=== PATIENT | male | born 1965 | race Caucasian/White ===

== ENCOUNTER → 2016-11-24 | Outpatient (CLI) | payer OTHER ==
--- NOTE | 2016-11-24 13:21 | XR ---
EXAMINATION TYPE: XR chest 2V DATE OF EXAM: 11/24/2016 1:15 PM COMPARISON: Prior chest x-ray March HISTORY: Pneumonia and cough TECHNIQUE: Frontal and lateral views of the chest are obtained. FINDINGS: There is no focal air space opacity, pleural effusion, or pneumothorax seen. The cardiac silhouette size is within normal limits. Patient is rotated. The osseous structures are remarkable for some irregularity of the 4th rib laterally on the right, possible old fracture, similar appearanc e to the left fifth rib. IMPRESSION: No acute cardiopulmonary process. Correlate for possible old rib fractures.
== END | disposition home or self-care (01) ==
LOC: RADXRMAIN 12:53
PROVIDERS: ATTEND Family Medicine
DX: J18.9 Pneumonia, unspecified organism (principal)
CPT/HCPCS: 71020

== ENCOUNTER → 2017-06-07 | Outpatient (CLI) | payer OTHER ==
--- NOTE | 2017-06-07 08:47 | XR ---
EXAMINATION TYPE: XR Hip Complete RT DATE OF EXAM: 06/07/2017 COMPARISON: NONE HISTORY: Pain TECHNIQUE: 2 views submitted FINDINGS: There is no evidence of erosive change or acute fracture. There is postsurgical change with heterotopic ossification in the soft tissues. Tiny bony circular cece cencies in the mid diaphysis are nonspecific. IMPRESSION: 1. No evidence of acute fracture or dislocation. 2. Postsurgical change.
--- NOTE | 2017-06-07 08:48 | XR ---
EXAM TYPE: LUMBAR SPINE X RAY SERIES COMPARISON: NONE HISTORY: Pain TECHNIQUE: 3 views are submitted. FINDINGS: Alignment is anatomic. The pedicles are intact. The transverse processes are intact. There is no s pondylolysis or spondylolisthesis. IVC filter noted. Hypertrophic degenerative change at all levels with compression deformity of L3 inferior endplate and superior endplate T12. Multilevel facet arthro cece noted. IMPRESSION: 1. Compression deformity T12 and L3 has been noted by previous MRI. Deformity of the S1 level also is seen by previous MRI and suggestive of multiple myeloma. 2. Multilevel degenerative disc disease.
== END | disposition home or self-care (01) ==
LOC: RADXRMAIN 08:11
PROVIDERS: ATTEND Family Medicine
DX: M25.551 Pain in right hip (principal); M51.36 Other intervertebral disc degeneration, lumbar region; Z98.890 Other specified postprocedural states
CPT/HCPCS: 72100; 73502

== ENCOUNTER → 2017-07-21 | Outpatient (CLI) | payer BC ==
--- NOTE | 2017-07-21 15:42 | XR ---
EXAMINATION TYPE: XR chest 2V DATE OF EXAM: 07/21/2017 COMPARISON: Prior chest x-ray 11/24/2016 HISTORY: Cough TECHNIQUE: Frontal and lateral views of the chest are obtained. FINDINGS: There is no focal air space opacity, pleural effusion, or pneumothorax seen. The cardiac silhouette size is within normal limits. Bronchial wall thickening noted. The osseous structures are stable. IMPRESSION: Correlate for reactive airways disease, bronchitis
== END | disposition home or self-care (01) ==
LOC: RADXRMAIN 12:01
PROVIDERS: ATTEND Family Medicine
DX: R05 Cough (principal)
CPT/HCPCS: 71020

== ENCOUNTER → 2017-07-22 | Outpatient (CLI) | payer BC ==
--- NOTE | 2017-07-22 13:03 | US ---
EXAMINATION TYPE: US venous doppler duplex LE DATE OF EXAM: 07/22/2017 12:46 PM COMPARISON: NONE CLINICAL HISTORY: M79.662 left leg pain,M79.661 pain in right leg. Patient has h/o DVT in right leg a nd has Honey filter, pain in right leg today, hip fracture 2 years ago on the right and leg have never been the same SIDE PERFORMED: Right TECHNIQUE: The lower extremity deep venous system is examined utilizing real time linear array sonog bianca with graded compression, doppler sonography and color-flow sonography. VESSELS IMAGED: External Iliac Vein (EIV) Common Femoral Vein Deep Femoral Vein Greater Saphenous Vein * Femoral Vein Popliteal Vein Small Saphenous Vein * Proximal Calf Veins (* superficial vessels) order stated bilateral, patient stated he is only here for right leg and knew there would be additi onal charge for the left leg. Declined left leg ultrasound today since no symptoms, tried to contact office so they are aware and they were closed for lunch till 1:15. Grayscale, color doppler, spectral doppler imaging performed of the deep veins of the right lower ext remity. There is normal flow, compressibility, vascular waveforms. Right Leg: Appears negative for DVT IMPRESSION: No evidence for DVT right lower extremity.
== END | disposition home or self-care (01) ==
LOC: RADUSWWP 12:05
PROVIDERS: ATTEND Internal Medicine Hematology & Oncology
DX: I82.411 Acute embolism and thrombosis of right femoral vein (principal); C90.00 Multiple myeloma not having achieved remission

== ENCOUNTER → 2018-11-14 | Outpatient (CLI) | payer BC, MEDICARE ==
--- NOTE | 2018-11-14 12:27 | ECHOF ---
Referral Reason:R06.02 shortness of breath MEASUREMENTS -------- HEIGHT: 175.3 cm WEIGHT: 102.5 kg BP: 134/83 RVIDd: 3.5 cm (< 3.3) IVSd: 1.4 cm (0.6 - 1.1) LVIDd: 4.7 cm (3.9 - 5.3) LVPWd: 1.3 cm (0.6 - 1.1) IVSs: 1.9 cm LVIDs: 3.0 cm LVPWs: 1.7 cm LA Diam: 3.6 cm (2.7 - 3.8) LAESV Index (A-L): 19.27 ml/m Ao Diam: 3.6 cm (2.0 - 3.7) AV Cusp: 2.6 cm (1.5 - 2.6) MV EXCURSION: 16.659 mm (> 18.000) MV EF SLOPE: 71 mm/s (70 - 150) EPSS: 1.1 cm MV E Tien: 0.76 m/s MV DecT: 254 ms MV A Tien: 0.84 m/s MV E/A Ratio: 0.91 RAP: 5.00 mmHg RVSP: 31.94 mmHg FINDINGS -------- Sinus rhythm. This was a technically good study. The left ventricular size is normal. There is moderate concentric left ventricular hypertrophy. O verall left ventricular systolic function is normal with, an EF between 60 - 65 %. The right ventricle is mildly enlarged. Normal LA size by volume 22+/-6 ml/m2. The right atrium is normal in size. The aortic valve is trileaflet and appears structurally normal. The mitral valve is normal. Mild tricuspid regurgitation present. Right ventricular systolic pressure is normal at < 35 mmHg. The right ventricular systolic pressure, as measured by Doppler, is 31.94mmHg. Trace/mild (physiologic) pulmonic regurgitation. The aortic root size is normal. Normal inferior vena cava with normal inspiratory collapse consistent with estimated right atrial pre ssure of 5 mmHg. There is no pericardial effusion. CONCLUSIONS -------- 1. Sinus rhythm. 2. This was a technically good study. 3. The left ventricular size is normal. 4. There is moderate concentric left ventricular hypertrophy. 5. Overall left ventricular systolic function is normal with, an EF between 60 - 65 %. 6. The right ventricle is mildly enlarged. 7. Normal LA size by volume 22+/-6 ml/m2. 8. The right atrium is normal in size. 9. The aortic valve is trileaflet and appears structurally normal. 10. The mitral valve is normal. 11. Mild tricuspid regurgitation present. 12. Right ventricular systolic pressure is normal at < 35 mmHg. 13. The right ventricular systolic pressure, as measured by Doppler, is 31.94mmHg. 14. Trace/mild (physiologic) pulmonic regurgitation. 15. The aortic root size is normal. 16. Normal inferior vena cava with normal inspiratory collapse consistent with estimated right atrial pressure of 5 mmHg. 17. There is no pericardial effusion. REFRACTORY FURNACE DESIGNER: Roseanne Styles RDCS
== END ==
LOC: RADECHMAIN 08:14
PROVIDERS: ATTEND Family Medicine
DX: I07.1 Rheumatic tricuspid insufficiency (principal)
CPT/HCPCS: 93306

== ENCOUNTER → 2021-07-29 | Outpatient (CLI) | payer BC, MEDICARE ==
--- NOTE | 2021-07-29 15:42 | XR ---
EXAMINATION TYPE: XR foot complete RT DATE OF EXAM: 07/29/2021 COMPARISON: NONE HISTORY: Pain TECHNIQUE: Three views are submitted. FINDINGS: The osseous structures are intact. There is no acute fracture or dislocation. Hammertoe deformitie s. Mild arthropathy of the first MTP. calcaneal spurs noted. IMPRESSION: 1. No acute fracture or dislocation. If symptoms persist, follow-up exam in 7 to 10 days could be ob tained. 2. Arthropathy.
--- NOTE | 2021-07-29 15:48 | XR ---
EXAMINATION TYPE: XR ankle complete RT DATE OF EXAM: 07/29/2021 COMPARISON: NONE HISTORY: Pain FINDINGS: Three views of the ankle demonstrate the ankle mortise to be intact and symmetric. The joint spaces are preserved. The osseous structures are intact. Small plantar calcaneal spur. Soft tissue edema. IMPRESSION: 1. No definite acute fracture or dislocation, if symptoms persist follow-up study in 7 to 10 days wou ld be suggested.
== END | disposition home or self-care (01) ==
LOC: RADXRMAIN 14:53
PROVIDERS: ATTEND Family Medicine
DX: M19.071 Primary osteoarthritis, right ankle and foot (principal)

== ENCOUNTER → 2021-11-07 | Outpatient (CLI) | payer BC, MEDICARE ==
--- NOTE | 2021-11-07 09:56 | US ---
EXAMINATION TYPE: US abdomen complete DATE OF EXAM: 11/07/2021 COMPARISON: NONE CLINICAL HISTORY: R10.9. right flank pain. nausea EXAM MEASUREMENTS: Liver Length: 17.8 cm Gallbladder Wall: 0.2 cm CBD: 0.4 cm Spleen: 12.4 cm Right Kidney: 10.9 x 5.5 x 4.8 cm Left Kidney: 12.1 x 4.7 x 4.7 cm Pancreas: Obscured by bowel gas Liver: Mildly enlarged, slightly heterogeneous Gallbladder: no evidence of stones Evidence for sonographic Burns's sign: no CBD: wnl Spleen: wnl Right Kidney: no evidence of hydronephrosis Left Kidney: no evidence of hydronephrosis Upper IVC: wnl Abd Aorta: wnl IMPRESSION: 1. Mild hepatomegaly.
== END | disposition home or self-care (01) ==
LOC: RADUSWWP 07:25
PROVIDERS: ATTEND Family Medicine
DX: R16.0 Hepatomegaly, not elsewhere classified (principal)
CPT/HCPCS: 76700

== ENCOUNTER → 2021-12-12 | Outpatient (CLI) | payer BC, MEDICARE ==
--- NOTE | 2021-12-12 15:04 | NM ---
EXAMINATION TYPE: NM hepatobiliary w CCK DATE OF EXAM: 12/12/2021 COMPARISON: NONE HISTORY: K 80.10 TECHNIQUE: After the intravenous administration of 4 mCi Tc 99m Mebrofenin hepatobiliary scintigraphy is performed. Immediate images post injection. FINDINGS: There is satisfactory initial accumulation of tracer by the liver. The gallbladder is visualized wit hin 10 minutes. The small bowel activity is noted on acquired ejection fraction images. At one hour CCK was administered, patient was injected with 1.9 mcg of Kinevac, and gallbladder ejection fractio n is calculated at 88 %, above the upper limit of the normal range. Therefore there is no scintigra phic evidence of cystic or common bile duct obstruction to suggest acute cholecystitis or gallbladder dyskinesia. IMPRESSION: Elevated ejection fraction can be seen with hyperdynamic gallbladder, delayed visualizati on of the small bowel
== END | disposition home or self-care (01) ==
LOC: RADNMMAIN 12:29
PROVIDERS: ATTEND Surgery Plastic and Reconstructive Surgery
DX: K82.8 Other specified diseases of gallbladder (principal)
CPT/HCPCS: 78227; A9537; J2805

== ENCOUNTER 2022-01-08 07:02 | Day surgery (SDC) | payer BC, MEDICARE ==
[2021-12-16 12:22] VITALS: BMI 31.6
[~2022-01-08 07:02] MED LIST: LACTATED RINGERS 1,000 ML IV SCH
[2022-01-08 07:30] VITALS: TEMP 97
--- NOTE | 2022-01-08 07:37 | P.GSHP ---
History of Present Illness H&P Date: 01/08/22 CHIEF COMPLAINT: Colon screen HISTORY OF PRESENT ILLNESS: The patient is a 56-year-old male who presents for colon screen. Lower endoscopy was offered for further evaluation and management. PAST MEDICAL HISTORY: Please see list. PAST SURGICAL HISTORY: Please see list. MEDICATIONS: Please see list. ALLERGIES: Please see list. SOCIAL HISTORY: No illicit drug use FAMILY HISTORY: No reports of Crohn disease or ulcerative colitis. REVIEW OF ORGAN SYSTEMS: CONSTITUTIONAL: No reports of fevers or chills. PHYSICAL EXAM: VITAL SIGNS: Stable GENERAL: Well-developed pleasant in no acute distress. HEENT: No scleral icterus. Extraocular movements grossly intact. Moist buccal mucosa. NECK: Supple without lymphadenopathy. CHEST: Unlabored respirations. Equal bilateral excursions. CARDIOVASCULAR: Regular rate and rhythm. Distal 2+ pulses. ABDOMEN: Soft, nontender, nondistended. MUSCULOSKELETAL: No clubbing, cyanosis, or edema. ASSESSMENT: 1. Colon screen. PLAN: 1. Recommend proceeding with a lower endoscopy Past Medical History Past Medical History: Asthma, Cancer, COPD, CVA/TIA, Deep Vein Thrombosis (DVT), GERD/Reflux, Hypertension, Myocardial Infarction ([place]), Osteoarthritis (OA), Pneumonia, Thyroid Disorder Additional Past Medical History / Comment(s): back pain, restless leg syndrome, vertigo, multiple myeloma- completed radiation tx march 2015 and did 8 cycleS of chemo, factory related COPD, migraines Last Myocardial Infarction Date:: History of Any Multi-Drug Resistant Organisms: C-DIFF Date of last positivie culture/infection: 12-17-15 MDRO Source:: stool Past Surgical History: Hernia Repair Additional Past Surgical History / Comment(s): jaw repair x2, madi filter Past Anesthesia/Blood Transfusion Reactions: No Reported Reaction Smoking Status: Never smoker - Past Family History Father Family Medical History: Coronary Artery Disease (CAD) Additional Family Medical History / Comment(s): triple cabg Mother Family Medical History: Cancer, CVA/TIA Medications and Allergies Home Medications Medication Instructions Recorded Confirmed Type Omeprazole [PriLOSEC] 20 mg PO AC-BRKFST capsule. 04/06/15 01/06/22 Rx Acyclovir [Zovirax] 200 mg PO BID 12/17/15 01/06/22 History Albuterol Sulfate [Proair Hfa] 2 puff INHALATION RT-Q6H PRN 12/17/15 01/06/22 History Budesonide/Formoterol Fumarate 2 puff INHALATION RT-BID 12/17/15 01/06/22 History [Symbicort 160-4.5 Mcg Inhaler] Levothyroxine Sodium [Synthroid] 200 mcg PO DAILY 12/17/15 01/06/22 History Sertraline [Zoloft] 100 mg PO DAILY 12/17/15 01/06/22 History Aspirin 325 mg PO DAILY 12/16/21 01/06/22 History Candesartan [Atacand] 32 mg PO DAILY 12/16/21 01/06/22 History Imatinib Mesylate 400 mg PO W/SUPPER 12/16/21 01/06/22 History Montelukast [Singulair] 10 mg PO DAILY 12/16/21 01/06/22 History dilTIAZem HCL [dilTIAZem HCL 24Hr 180 mg PO DAILY 12/16/21 01/06/22 History ER (Xr)] traZODone HCL 50 mg PO HS PRN 12/16/21 01/06/22 History Bortezomib 0 mg IV Q21D 01/06/22 01/06/22 History Allergies Allergy/AdvReac Type Severity Reaction Status Date / Time No Known Allergies Allergy Verified 01/08/22 07:27 Surgical - Exam Vital Signs Temp Pulse Resp BP Pulse Ox 97.0 F L 76 18 151/100 99 01/08/22 07:29 01/08/22 07:29 01/08/22 07:29 01/08/22 07:29 01/08/22 07:29
[2022-01-08] MEDS ORDERED: LIDOCAINE 1% (10MG/ML) FOR IV START INTRADERMA ONE (07:38)
[2022-01-08] MEDS ORDERED: PROPOFOL 10 MG/ML 20 ML VIAL IV ONE (08:02)
[2022-01-08] MEDS ORDERED: LIDOCAINE 1% INJ 10MG/ML (20 ML MDV) ONE (08:02)
--- NOTE | 2022-01-08 08:46 | P.PCN ---
Date of Procedure: 01/08/22 Description of Procedure: PREOPERATIVE DIAGNOSIS: Colitis Change in bowel habits POSTOPERATIVE DIAGNOSIS: Ileal cecal valve adenoma Ileitis Diverticulitis, sigmoid colon [place] diverticulosis OPERATION: Colonoscopy to the ileocecal valve and appendiceal orifice, cecum with ileoscopy Colonoscopy with hot snare polypectomy Colonoscopy with cold forceps biopsy SURGEON: Shena Cral MD. ANESTHESIA: MAC. INDICATIONS: The patient is an 56-year-old male presents with change in bowel habits and abdominal pain for colitis. Benefits and risks were described and informed consent was obtained. DESCRIPTION OF PROCEDURE: The patient had undergone Sutab prep. The patient had been brought into the operating room and laid in the left lateral decubitus position. After adequate intravenous sedation, the rectum was examined with 2% lidocaine jelly. The prostate was unremarkable. No external hemorrhoids were encountered. The rectal tone was within normal limits. No lesions were palpated in the rectal vault. An Olympus colonoscope was advanced until the cecum, ileocecal valve and appendiceal orifice were clearly viewed. The prep was excellent. Sigmoid diverticulosis with diverticulitis was found. Pandiverticulosis was found. The scope was advanced into the terminal ileum for ileoscopy where moderate inflammation was identified consistent with ileitis and biopsies were obtained. Colonic polyps were found and removed. Retroflexion of the scope demonstrated grade 1 internal hemorrhoids without active bleeding or inflammation. The colon was desufflated. The patient had tolerated the procedure well. Withdrawal time was over 6 minutes. FINDINGS: Aronchick preparation quality scale 1 (1-5) Internal hemorrhoids, grade 1 No external hemorrhoids No arteriovenous malformations. Sigmoid diverticulosis with diverticulitis Ileoscopy with biopsies cold forceps for ileitis Removal of 2 polyps: - Snare polypectomy ascending colon, 12 mm tubulovillous adenoma polyp. - Snare polypectomy ileocecal valve/cecum, 15 mm flat villous adenoma polyp. No focal colitis. RECOMMENDATIONS: Repeat colonoscopy in one year, 2022 Plan - Discharge Summary Discharge Rx Participant: Yes New Discharge Prescriptions: Continue Omeprazole [PriLOSEC] 20 mg PO AC-BRKFST capsule. Sertraline [Zoloft] 100 mg PO DAILY Levothyroxine Sodium [Synthroid] 200 mcg PO DAILY Budesonide/Formoterol Fumarate [Symbicort 160-4.5 Mcg Inhaler] 2 puff INHALATION RT-BID Acyclovir [Zovirax] 200 mg PO BID Albuterol Sulfate [Proair Hfa] 2 puff INHALATION RT-Q6H PRN PRN Reason: Shortness Of Breath traZODone HCL 50 mg PO HS PRN PRN Reason: Insomnia dilTIAZem HCL [dilTIAZem HCL 24Hr ER (Xr)] 180 mg PO DAILY Montelukast [Singulair] 10 mg PO DAILY Imatinib Mesylate 400 mg PO W/SUPPER Candesartan [Atacand] 32 mg PO DAILY Aspirin 325 mg PO DAILY Bortezomib 0 mg IV Q21D Discharge Medication List Omeprazole [PriLOSEC] 20 mg PO AC-BRKFST capsule. 04/06/15 [Rx] Acyclovir [Zovirax] 200 mg PO BID 12/17/15 [History] Albuterol Sulfate [Proair Hfa] 2 puff INHALATION RT-Q6H PRN 12/17/15 [History] Budesonide/Formoterol Fumarate [Symbicort 160-4.5 Mcg Inhaler] 2 puff INHALATION RT-BID 12/17/15 [History] Levothyroxine Sodium [Synthroid] 200 mcg PO DAILY 12/17/15 [History] Sertraline [Zoloft] 100 mg PO DAILY 12/17/15 [History] Aspirin 325 mg PO DAILY 12/16/21 [History] Candesartan [Atacand] 32 mg PO DAILY 12/16/21 [History] Imatinib Mesylate 400 mg PO W/SUPPER 12/16/21 [History] Montelukast [Singulair] 10 mg PO DAILY 12/16/21 [History] dilTIAZem HCL [dilTIAZem HCL 24Hr ER (Xr)] 180 mg PO DAILY 12/16/21 [History] traZODone HCL 50 mg PO HS PRN 12/16/21 [History] Bortezomib 0 mg IV Q21D 01/06/22 [History] Follow up Appointment(s)/Referral(s): Shena Carl MD [STAFF PHYSICIAN] - 02/03/22 Patient Instructions/Handouts: Diverticulitis (DC), Colorectal Polyps (GEN), Diverticulitis Diet (DC) Activity/Diet/Wound Care/Special Instructions: Repeat colonoscopy in one year, 2022 Discharge Disposition: HOME SELF-CARE
[2022-01-08 08:54] VITALS: BP 120/77; PULSE 74; RESP 16
== END 2022-01-08 09:25 | disposition home or self-care (01) ==
LOC: ORWHC2ENDO 07:02
PROVIDERS: ATTEND Surgery Plastic and Reconstructive Surgery
DX: D17.79 Benign lipomatous neoplasm of other sites (principal); K52.9 Noninfective gastroenteritis and colitis, unspecified; K57.32 Diverticulitis of large intestine without perforation or abscess without bleeding; K57.30 Diverticulosis of large intestine without perforation or abscess without bleeding; K64.0 First degree hemorrhoids; J44.9 Chronic obstructive pulmonary disease, unspecified; Z86.73 Personal history of transient ischemic attack (TIA), and cerebral infarction without residual deficits; Z86.718 Personal history of other venous thrombosis and embolism; Z87.01 Personal history of pneumonia (recurrent); K21.9 Gastro-esophageal reflux disease without esophagitis; I10 Essential (primary) hypertension; E07.9 Disorder of thyroid, unspecified; G25.81 Restless legs syndrome; R42 Dizziness and giddiness; Z85.89 Personal history of malignant neoplasm of other organs and systems; I25.2 Old myocardial infarction; M19.90 Unspecified osteoarthritis, unspecified site; Z92.3 Personal history of irradiation; Z92.21 Personal history of antineoplastic chemotherapy; G43.909 Migraine, unspecified, not intractable, without status migrainosus; Z98.890 Other specified postprocedural states; Z79.82 Long term (current) use of aspirin; Z79.890 Hormone replacement therapy; Z79.51 Long term (current) use of inhaled steroids; Z79.899 Other long term (current) drug therapy
CPT/HCPCS: 88305; 45380; 45385; J2001; J2704

== ENCOUNTER → 2022-02-12 | Outpatient (CLI) | payer BC, MEDICARE ==
--- NOTE | 2022-02-12 12:25 | BD ---
EXAMINATION TYPE: Axial Bone Density DATE OF EXAM: 02/12/2022 COMPARISON: NONE CLINICAL HISTORY: 56 years year old Male. ICD-10 CODE: M81.0 Osteoporosis Height: 67 Weight: 207 FRAX RISK QUESTIONS: Alcohol (3 or more units per day): YES Family History (Parent hip fracture): YES, MOTHER Glucocorticoids (More than 3mos): NO History of Fracture in Adulthood: YES Secondary Osteoporosis: 1. Type 1 Diabetes: NO 2. Hyperthyroidism: NO 3. Menopause before 45: NA 4. Malnutrition: NO 5. Chronic liver disease: NO Rheumatoid Arthritis: YES Current Tobacco Use: NO RISK FACTORS HISTORY OF: Hip Fracture (Right/Left): RT YES When: 2015 Spine Fracture: NO History of Wrist Fracture: YES RT When: AGE 14 Surgery to Spine/Hip(right/left)/Wrist (right/left): YES RT HIP When: 2015 Family History of Osteoporosis: MOTHER Active: YES Diet low in dairy products/other sources of calcium: YES Lost more than 2 inches in height since high school: NO Frequent falls: YES Poor Health: MULTIPLE MYL ROSE, CHRONIC LEUKEMIA Hyperparathyroidism: NO Adrenal Insufficiency: NO MEDICATIONS: Thyroid Medications:YES Which medication: SYNTHROID How Lon YEARS Osteoporosis Medications: NO Additional Medications: BP MEDS, CHOLESTEROL MEDS, SYNTHROID, INHALER Additional History: EXAM MEASUREMENTS: Bone mineral densitometry was performed using the [email or web address].sh System. Bone mineral density as measured about the Lumbar spine is: ----- L1-L4(G/cm2): 1.67 T Score Values are as follows: ----- L1: 2.4 ----- L2: 4.0 ----- L3: 4.5 ----- L4: 4.9 ----- L1-L4: 4.1 BASELINE STUDY Bone mineral density about the R hip (g/cm2): NA Bone mineral density about the L hip (g/cm2): 1.150 T Score values are as follows: -----R Neck: NA -----L Neck: 0.8 -----R Total: NA -----L Total: 2.1 BASELINE STUDY FRAX%s: The graph provided illustrates a 19.2% chance for a major osteoporotic fx and a 0.3% chance f or the hips probability for fx in 10 years time. IMPRESSION: Normal (Values between +1 and -1 indicate normal bone mass). Consider repeating this study in 5 year s or sooner if there is some new clinical indication. NOTE: T-SCORE=SD OF THE YOUNG ADULT MEAN.
== END | disposition home or self-care (01) ==
LOC: RADBDWWP 08:15
PROVIDERS: ATTEND Internal Medicine Hematology & Oncology
DX: M81.0 Age-related osteoporosis without current pathological fracture (principal)
CPT/HCPCS: 77080

== ENCOUNTER → 2022-05-11 | Outpatient (CLI) | payer BC, MEDICARE ==
--- NOTE | 2022-05-11 12:27 | XR ---
Limited right hip HISTORY: Right hip pain Views the right hip correlated prior exam 05/30/2017 Patient is status post right hip arthroplasty. Heterotopic new bone about the right hip is again seen . Sclerotic appearance present of proximal femur on the right. This no evident fracture or dislocatio n. Some lucency present along the medullary aspect of the mid diaphyseal right femur is stable. IMPRESSION: Stable findings compared to prior exam. No acute abnormality is evident. Correlate with o rthopedic history.
== END | disposition home or self-care (01) ==
LOC: RADXRMAIN 09:18
PROVIDERS: ATTEND Family Medicine
DX: M25.551 Pain in right hip (principal)
CPT/HCPCS: 73502

== ENCOUNTER 2023-12-09 08:28 | Day surgery (SDC) | payer BC, MEDICARE ==
[2023-12-07 15:40] VITALS: BMI 33.8
--- NOTE | 2023-12-09 07:03 | P.GSHP ---
History of Present Illness H&P Date: 12/09/23 CHIEF COMPLAINT: GERD and colon screen HISTORY OF PRESENT ILLNESS: The patient is a 58-year-old male who presents with gastroesophageal reflux disease and need for colon screen. Upper and lower endoscopy were offered for further evaluation and management. PAST MEDICAL HISTORY: Please see list. PAST SURGICAL HISTORY: Please see list. MEDICATIONS: Please see list. ALLERGIES: Please see list. SOCIAL HISTORY: No illicit drug use FAMILY HISTORY: No reports of Crohn disease or ulcerative colitis. REVIEW OF ORGAN SYSTEMS: CONSTITUTIONAL: No reports of fevers or chills. GI: Denies any blood in stools or constipation. PHYSICAL EXAM: VITAL SIGNS: Stable GENERAL: Well-developed pleasant in no acute distress. HEENT: No scleral icterus. Extraocular movements grossly intact. Moist buccal mucosa. NECK: Supple without lymphadenopathy. CHEST: Unlabored respirations. Equal bilateral excursions. CARDIOVASCULAR: Regular rate and rhythm. Distal 2+ pulses. ABDOMEN: Soft, nondistended. MUSCULOSKELETAL: No clubbing, cyanosis, or edema. ASSESSMENT: 1. Gastroesophageal reflux disease 2. Colon screen. PLAN: 1. Recommend proceeding with an upper and lower endoscopy Past Medical History Past Medical History: Asthma, Cancer, CVA/TIA, Deep Vein Thrombosis (DVT), GERD/Reflux, Hypertension, Myocardial Infarction ([place]), Osteoarthritis (OA), Pneumonia, Thyroid Disorder Additional Past Medical History / Comment(s): 12-17-15 ADMITTED WITH C-DIFF /SINUSITIS. OTHER PAST MEDICAL HX INCLUDES back pain, restless leg syndrome, seasonal allergies, vertigo, 04-06-15 PATHOLOGIC FEMUR FX-bx done pt stated has multiple myeloma- completed radiation tx march 2015 and did 8th cycle of chemo.factory related asthma migraines,vertigo ,2 fx lumbar vertabre Last Myocardial Infarction Date:: History of Any Multi-Drug Resistant Organisms: C-DIFF Date of last positivie culture/infection: 03/2015 MDRO Source:: Past Surgical History: Back Surgery, Hernia Repair Additional Past Surgical History / Comment(s): jaw repairx2, madi filter, bone marrow bx, Past Anesthesia/Blood Transfusion Reactions: No Reported Reaction Additional Past Anesthesia/Blood Transfusion Reaction / Comment(s): Positive blood transfusion reaction Smoking Status: Former smoker - Past Family History Father Family Medical History: Coronary Artery Disease (CAD) Additional Family Medical History / Comment(s): triple cabg Mother Family Medical History: Cancer, CVA/TIA Additional Family Medical History / Comment(s): breast Medications and Allergies Home Medications Medication Instructions Recorded Confirmed Type Omeprazole [PriLOSEC] 20 mg PO AC-BRKFST capsule. 04/06/15 12/07/23 Rx Acyclovir [Zovirax] 200 mg PO BID 12/17/15 12/07/23 History Albuterol Sulfate [Proair Hfa] 2 puff INHALATION RT-Q6H PRN 12/17/15 12/07/23 History Budesonide/Formoterol Fumarate 2 puff INHALATION RT-BID 12/17/15 12/07/23 History [Symbicort 160-4.5 Mcg Inhaler] Levothyroxine Sodium [Synthroid] 200 mcg PO DAILY 12/17/15 12/07/23 History Sertraline [Zoloft] 100 mg PO DAILY 12/17/15 12/07/23 History Aspirin 325 mg PO DAILY 12/16/21 12/07/23 History Candesartan [Atacand] 32 mg PO DAILY 12/16/21 12/07/23 History Imatinib Mesylate 400 mg PO W/SUPPER 12/16/21 12/07/23 History Montelukast [Singulair] 10 mg PO DAILY 12/16/21 12/07/23 History dilTIAZem HCL [dilTIAZem HCL 24Hr 180 mg PO DAILY 12/16/21 12/07/23 History ER (Xr)] traZODone HCL 50 mg PO HS PRN 12/16/21 12/07/23 History Bortezomib 0 mg IV Q21D 01/06/22 12/07/23 History metroNIDAZOLE [Flagyl] 500 mg PO TID #30 tab 01/08/22 12/07/23 Rx Allergies Allergy/AdvReac Type Severity Reaction Status Date / Time No Known Allergies Allergy Verified 01/08/22 07:27
[2023-12-09] MEDS: LIDOCAINE 1% (10MG/ML) FOR IV START INTRADERMA PRN (09:10)
[2023-12-09] MEDS: LACTATED RINGERS 1,000 ML IV SCH (09:10)
[2023-12-09 09:27] VITALS: TEMP 97.7
[2023-12-09] MEDS ORDERED: PROPOFOL 10 MG/ML 20 ML VIAL IV ONE (10:04)
[2023-12-09] MEDS ORDERED: LIDOCAINE 1% INJ 10MG/ML (20 ML MDV) ONE (10:04)
--- NOTE | 2023-12-09 10:37 | P.PCN ---
Date of Procedure: 12/09/23 Description of Procedure: PREOPERATIVE DIAGNOSIS: Gastroesophageal reflux disease. Morbid obesity. POSTOPERATIVE DIAGNOSIS: Gastroesophageal reflux disease. Morbid obesity. Gastritis. Diaphragmatic hiatal hernia OPERATION: Esophagogastroduodenoscopy with biopsies along esophagus, antrum and duodenum SURGEON: Shena Carl MD ANESTHESIA: MAC. INDICATIONS: The patient is a 58-year-old male who presents with reflux disease. Benefits and risks of the procedure were described. Informed consent was obtained. DESCRIPTION: The patient was brought into the endoscopy suite and laid in the left lateral decubitus position. An Olympus gastroscope was passed along the posterior oropharynx down to the distal esophagus where the squamocolumnar junction was encountered at 38 cm from the incisors. The stomach was entered and no bile reflux was found. Additional findings are listed below. Biopsies with cold forceps were obtained of the antrum. The first through third portion of the duodenum was examined. Retroflexion of the scope confirmed Hill grade 3 lower esophageal valve. The squamocolumnar junction demonstrated LA grade B erosive esophagitis. The stomach was desufflated. The patient tolerated the procedure well. FINDINGS: Squamocolumnar junction 38cm from the incisors. Diaphragmatic hiatus at 40 cm. Hiatal hernia, 2 cm, sliding Hill grade 3 lower esophageal valve. LA grade C erosive esophagitis. Biopsies obtained Biopsies obtained of the duodenum. Chronic gastritis with biopsies obtained. RECOMMENDATIONS: Upper endoscopy as needed.
--- NOTE | 2023-12-09 10:41 | P.PCN ---
Date of Procedure: 12/09/23 Description of Procedure: PREOPERATIVE DIAGNOSIS: Abnormal stool function Change in bowel habits POSTOPERATIVE DIAGNOSIS: Microscopic colitis Moderate sigmoid diverticulosis and pandiverticulosis OPERATION: Colonoscopy to the cecum, ileocecal valve and appendiceal orifice. Colonoscopy with random cold forceps biopsies for microscopic colitis SURGEON: Shena Carl MD. ANESTHESIA: MAC. INDICATIONS: The patient is a 58-year-old female who presents with altered stools including change in bowel habits. Benefits and risks were described and informed consent was obtained. DESCRIPTION OF PROCEDURE: The patient had undergone Suprep. The patient had been brought into the operating room and laid in the left lateral decubitus position. After adequate intravenous sedation, the rectum was examined with 2% lidocaine jelly. No external hemorrhoids were encountered. The rectal tone was within normal limits. No lesions were palpated in the rectal vault. An Olympus colonoscope was advanced until the cecum, ileocecal valve and appendiceal orifice were clearly viewed. The prep was excellent. Scattered diverticulosis was encountered. No colonic polyps were found. Cold forceps biopsies randomly were obtained for microscopic colitis. Retroflexion of the scope demonstrated grade 1 internal hemorrhoids without active bleeding or inflammation. The colon was desufflated. The patient had tolerated the procedure well. Withdrawal time was over 6 minutes. FINDINGS: Aronchick preparation quality scale 1 (1-5) Internal hemorrhoids, grade 1 No external prolapsed hemorrhoids. No arteriovenous malformations. No adenomatous polyps. Pandiverticulosis Cold forceps biopsies obtained for microscopic colitis RECOMMENDATIONS: Repeat colonoscopy 10 years, 2033 Plan - Discharge Summary Discharge Rx Participant: No New Discharge Prescriptions: Continue Omeprazole [PriLOSEC] 20 mg PO AC-BRKFST capsule. Sertraline [Zoloft] 100 mg PO DAILY Levothyroxine Sodium [Synthroid] 200 mcg PO DAILY Budesonide/Formoterol Fumarate [Symbicort 160-4.5 Mcg Inhaler] 2 puff INHALATION RT-BID Acyclovir [Zovirax] 200 mg PO BID Albuterol Sulfate [Proair Hfa] 2 puff INHALATION RT-Q6H PRN PRN Reason: Shortness Of Breath traZODone HCL 50 mg PO HS PRN PRN Reason: Insomnia dilTIAZem HCL [dilTIAZem HCL 24Hr ER (Xr)] 180 mg PO DAILY Montelukast [Singulair] 10 mg PO DAILY Imatinib Mesylate 400 mg PO W/SUPPER metroNIDAZOLE [Flagyl] 500 mg PO TID #30 tab Candesartan [Atacand] 32 mg PO DAILY Aspirin 325 mg PO DAILY Bortezomib 0 mg IV Q21D Discharge Medication List Omeprazole [PriLOSEC] 20 mg PO AC-BRKFST capsule. 04/06/15 [Rx] Acyclovir [Zovirax] 200 mg PO BID 12/17/15 [History] Albuterol Sulfate [Proair Hfa] 2 puff INHALATION RT-Q6H PRN 12/17/15 [History] Budesonide/Formoterol Fumarate [Symbicort 160-4.5 Mcg Inhaler] 2 puff INHALATION RT-BID 12/17/15 [History] Levothyroxine Sodium [Synthroid] 200 mcg PO DAILY 12/17/15 [History] Sertraline [Zoloft] 100 mg PO DAILY 12/17/15 [History] Aspirin 325 mg PO DAILY 12/16/21 [History] Candesartan [Atacand] 32 mg PO DAILY 12/16/21 [History] Imatinib Mesylate 400 mg PO W/SUPPER 12/16/21 [History] Montelukast [Singulair] 10 mg PO DAILY 12/16/21 [History] dilTIAZem HCL [dilTIAZem HCL 24Hr ER (Xr)] 180 mg PO DAILY 12/16/21 [History] traZODone HCL 50 mg PO HS PRN 12/16/21 [History] Bortezomib 0 mg IV Q21D 01/06/22 [History] metroNIDAZOLE [Flagyl] 500 mg PO TID #30 tab 01/08/22 [Rx] Follow up Appointment(s)/Referral(s): Shena Carl MD [STAFF PHYSICIAN] - 01/11/24 10:00 am Patient Instructions/Handouts: *Surgery [facility] - (Anesthesia) Discharge Instructions Outpatient Surgery, Hiatal Hernia (DC), Diverticulosis (GEN), GERD (Gastroesophageal Reflux Disease) (DC), Diverticulosis Diet (GEN) Activity/Diet/Wound Care/Special Instructions: Repeat colonoscopy 10 years, 2033 Discharge Disposition: HOME SELF-CARE
[2023-12-09 11:04] VITALS: BP 150/85; PULSE 74; RESP 16
== END 2023-12-09 12:27 | disposition home or self-care (01) ==
LOC: ORWHC2ENDO 08:28
PROVIDERS: ATTEND Surgery Plastic and Reconstructive Surgery
DX: Z12.11 Encounter for screening for malignant neoplasm of colon (principal); K29.50 Unspecified chronic gastritis without bleeding; D72.820 Lymphocytosis (symptomatic); K44.9 Diaphragmatic hernia without obstruction or gangrene; K57.30 Diverticulosis of large intestine without perforation or abscess without bleeding; K52.9 Noninfective gastroenteritis and colitis, unspecified; E66.01 Morbid (severe) obesity due to excess calories; G25.81 Restless legs syndrome; I10 Essential (primary) hypertension; I25.2 Old myocardial infarction; J45.909 Unspecified asthma, uncomplicated; K21.9 Gastro-esophageal reflux disease without esophagitis; M19.90 Unspecified osteoarthritis, unspecified site; Z79.51 Long term (current) use of inhaled steroids; Z79.82 Long term (current) use of aspirin; Z79.890 Hormone replacement therapy; Z79.899 Other long term (current) drug therapy; Z86.718 Personal history of other venous thrombosis and embolism; Z86.73 Personal history of transient ischemic attack (TIA), and cerebral infarction without residual deficits; Z87.891 Personal history of nicotine dependence; Z68.34 Body mass index [BMI] 34.0-34.9, adult
CPT/HCPCS: 88305; 45380; 43239; J2001; J2704

== ENCOUNTER → 2023-12-21 | Outpatient (CLI) | payer BC, MEDICARE ==
--- NOTE | 2023-12-21 12:32 | US ---
EXAMINATION TYPE: US gallbladder DATE OF EXAM: 12/21/2023 COMPARISON: 11/07/2021 CLINICAL INDICATION: Male, 58 years old with history of K81.1 CHRONIC CHOLECYSTITIS; digestion issues , multiple bowel movements per day TECHNIQUE: Multiple sonographic images of the right upper quadrant are obtained. FINDINGS: EXAM MEASUREMENTS: Liver Length: 18.1 cm Gallbladder Wall: 0.2 cm CBD: 0.7 cm Right Kidney: 9.4 x 4.5 x 4.7 cm Pancreas: obscured by bowel gas Liver: upper limits of normal Gallbladder: possible single 3 mm polyp seen. Evidence for sonographic Burns's sign: no CBD: wnl Right Kidney: wnl IMPRESSION: 1. Bile duct borderline to mildly dilated at 7 mm. Correlate with alkaline phosphatase and bilirubin levels to exclude biliary obstruction. 2. Suggestion of a tiny 3 mm gallbladder wall polyp. Follow-up in 6-12 months to reassess. Otherwise, no gallstones are seen. 3. Mild hepatomegaly at 18.1 cm.
== END | disposition home or self-care (01) ==
LOC: RADUSWWP 07:38
PROVIDERS: ATTEND Surgery Plastic and Reconstructive Surgery
DX: K83.8 Other specified diseases of biliary tract (principal); K81.1 Chronic cholecystitis; R16.0 Hepatomegaly, not elsewhere classified
CPT/HCPCS: 76705

== ENCOUNTER → 2023-12-22 | Outpatient (CLI) | payer BC, MEDICARE ==
--- NOTE | 2023-12-22 10:33 | NM ---
EXAMINATION TYPE: NM hepatobiliary w EF DATE OF EXAM: 12/22/2023 10:27 AM COMPARISON: 12/12/2021 CLINICAL INDICATION:Male, 58 years old with history of K81.1 CHRONIC CHOLECYSTITIS; TECHNIQUE: The patient was given 4.9 mCi of Technetium 99m-Mebrofenin as a radiotracer and multiple scintigraphic images were obtained of the abdomen. Gallbladder function was also assessed after the a dministration of ensure drink and additional scintigraphic images were obtained of the abdomen. A reg ion of interest was drawn over the gallbladder and a timing activity curve was generated. The gallbla dder ejection fraction was calculated. FINDINGS: Normal uptake of radiotracer was identified within the liver with excretion into the hepatic and comm on biliary ducts within 6 minutes. There was normal progressive washout of the liver over the course of the study. Radiotracer uptake within the gallbladder at 18 minutes as well as small bowel activity was identified at age 6 minutes. Maximum calculated gallbladder ejection fraction is: 49% at 30 minutes (Normal gallbladder ejection fraction is > 35%) IMPRESSION: 1. Normal hepatobiliary scan. 2. Normal ejection fraction.
== END | disposition home or self-care (01) ==
LOC: RADNMMAIN 06:58
PROVIDERS: ATTEND Surgery Plastic and Reconstructive Surgery
DX: K81.1 Chronic cholecystitis (principal)
CPT/HCPCS: 78226; A9537

== ENCOUNTER → 2024-03-29 | Outpatient (CLI) | payer BC, MEDICARE ==
--- NOTE | 2024-03-29 16:37 | XR ---
EXAMINATION TYPE: XR knee limited RT, XR Hip Complete RT DATE OF EXAM: 03/29/2024 3:43 PM CLINICAL INDICATION:Male, 59 years old with history of [id number], KNEE/HIP PAIN; [facility] COMPARISON: 04/02/2017.. TECHNIQUE: XR knee limited RT, XR Hip Complete RT; examined in Frontal, lateral and oblique projectio ns. Frontal and lateral views of the right hip. FINDINGS: No evidence of any acute osseous pathology, soft tissue swelling, or joint effusion is no nicolle. Tricompartmental osteophyte formation involving the femoral condyles, tibial plateau and patella . Mild joint space narrowing. Posttreatment changes to the femur from proximal fracture seen on prior . Arthroplasty changes of the right hip with hardware intact. Dystrophic calcifications are seen arou nd the hip. 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
== END | disposition home or self-care (01) ==
LOC: RADXRMAIN 14:41
PROVIDERS: ATTEND Family Medicine
DX: M17.11 Unilateral primary osteoarthritis, right knee (principal)
CPT/HCPCS: 73502

== ENCOUNTER 2025-01-25 11:43 | Day surgery (SDC) | payer BC, MEDICARE ==
[2025-01-24 10:20] VITALS: BMI 30.7
[~2025-01-25 11:43] MED LIST changes: +HYDROmorphone 0.5 MG/0.5 ML SYRINGE IVP PRN; -LACTATED RINGERS 1,000 ML IV SCH; +Pre Op ABX Message 1 EACH MISC MISCELLANE ONE
[2025-01-25] MEDS: IV FLUID CONTINUATION 1,000 ML IV ONE (12:20)
[2025-01-25] MEDS: LACTATED RINGERS 1,000 ML IV SCH (12:20)
[2025-01-25 12:21] VITALS: RESP 16; TEMP 96.4
[2025-01-25] MEDS: hydrALAZINE HCL 20 MG/ML 1 ML VIAL IVP STA (12:40)
[2025-01-25] MEDS: DEXAMETHASONE SOD PHOSPHATE 4 MG/ML 1 ML VIAL IV ONE (12:40)
[2025-01-25] MEDS: ONDANSETRON 4 MG/2 ML VIAL IVP ONE (12:40)
[2025-01-25] MEDS ORDERED: fentaNYL (PF) 50 MCG/ML 2 ML AMP ONE (13:03)
[2025-01-25] MEDS ORDERED: MIDAZOLAM 2 MG/2 ML VIAL ONE (13:03)
[2025-01-25] MEDS ORDERED: PROPOFOL 10 MG/ML 20 ML VIAL IV ONE (13:03)
[2025-01-25] MEDS: SODIUM CHLORIDE 0.9% 50 ML with ceFAZolin 2,000 MG IV ONE (13:11)
[2025-01-25] MEDS: LIDOCAINE 1%-EPI 1:100,000 20 ML VIAL SQ ONE ×2 (13:18)
[2025-01-25] MEDS: HEPARIN SODIUM,PORCINE 100 UNIT/ML 5 ML VIAL IV ONE (13:19)
--- NOTE | 2025-01-25 13:55 | P.OP ---
Date of Procedure: 01/25/25 Preoperative Diagnosis: Leukemia Multiple myeloma Postoperative Diagnosis: Leukemia Multiple myeloma Procedure(s) Performed: Mediport placement under fluoroscopic guidance Anesthesia: MAC Surgeon: Ozzy Gonzales Pathology: none sent Condition: stable Disposition: same day Indications for Procedure: 59-year-old male with history of leukemia and multiple myeloma presents today for Mediport placement for chemotherapy induction. Risks, benefits and alternatives were provided to the patient including risks of pneumothorax and bleeding. He did provide consent prior to attending the operative suite. Operative Findings: Appropriate flush and withdrawal from Mediport Description of Procedure: Patient was brought to the operating suite and placed in supine position on the operating table. Sedation was provided by anesthesia and the patient underwent endotracheal intubation. Patient was then prepped and draped in regular sterile fashion. Local anesthetic was administered and the right subclavian vein was entered on first attempt. Dark nonpulsatile blood was noted. Guidewire was then placed and location was confirmed under fluoroscopic guidance. At this point local anesthetic was administered to create the pocket for the port. Incision was made and dissection was carried to the prepectoralis fascia. Dissection was carried to free up space for the port. At this point a small incision was made at the guidewire insertion site and a tunnel was created between this guidewire site and the pocket and catheter was placed. Dilator sheath was then placed over the guidewire under fluoroscopic guidance and catheter was then placed. Catheter was noted to be in appropriate position and was connected to the port and port was placed in the pocket. Appropriate flush and withdrawal was noted from the port site. The port was then secured to the prepectoralis fascia in 2 separate locations. Fluoroscopic guidance confirmed location with no kinks in the catheter. Heparin lock was placed. The wound was then closed in layers with 3-0 Vicryl and 4-0 Vicryl subcuticular suture. Sterile dressing was applied. The patient was then taken to postanesthesia care unit in stable condition with pending chest x-ray.
[2025-01-25 14:04] VITALS: BP 159/85; PULSE 61
--- NOTE | 2025-01-25 14:26 | XR ---
EXAMINATION TYPE: XR chest 1V confirm line [facility] DATE OF EXAM: 01/25/2025 COMPARISON: 10/06/2019 CLINICAL INDICATION: Male, 59 years old with history of Mediport placement; TECHNIQUE: Single frontal view of the chest is obtained. FINDINGS: Heart mildly enlarged. Right anterior chest wall injection port with catheter tip at the u pper to mid SVC level. Interstitial and vascular prominence. No consolidation or pleural effusion. IMPRESSION: 1. Right anterior chest wall injection port with subclavian access and catheter tip at the upper to m id SVC. 2. Mild cardiomegaly and interstitial change. Correlate for mild pulmonary vascular congestion. [facility], Workstation: [email or web address], 01/25/2025 2:23 PM
--- NOTE | 2025-01-25 15:13 | FL ---
EXAMINATION TYPE: FL guided central line placement DATE OF EXAM: 01/25/2025 FLUOROSCOPY FL 41.3 DAP [id number] 4 images provided show a right-sided Port-A-Cath insertion with subclavian access. [facility], , 01/25/2025 3:10 PM
== END 2025-01-25 14:46 | disposition home or self-care (01) ==
LOC: OR 11:43
PROVIDERS: ATTEND Surgery
DX: C91.10 Chronic lymphocytic leukemia of B-cell type not having achieved remission (principal); C90.00 Multiple myeloma not having achieved remission; Z45.2 Encounter for adjustment and management of vascular access device
CPT/HCPCS: 77001; 36561; C1788; J2250; J0360; J1642; J1100; J2405; J0690; J3010; J2704